=== PATIENT | female | born 1950 | race Two or more races ===

== ENCOUNTER 2017-09-21 12:50 | Inpatient (IN) | payer OTHER ==
[2017-09-21] VITALS (11 sets, daily range): BP systolic 71–181; BP diastolic 42–147
[~2017-09-21] VITALS: Ht 152.4 cm; Wt 88.6 kg
[2017-09-21] MEDS ORDERED: SODIUM CHLORIDE 0.9% 1,000 ML IVB ONE (13:02)
[2017-09-21] MEDS ORDERED: SODIUM CHLORIDE 0.9% 1,000 ML IV ONE (13:02)
[2017-09-21] MEDS ORDERED: ACETAMINOPHEN 650 MG RECT SUPP PR ONE (14:00)
[2017-09-21 14:11] LABS: Hematocrit 47.3 % (36.0-46.0); Hemoglobin 15.4 g/dL (12.2-16.2); Mean Corpuscular Hemoglobin 29.1 pg (28.0-32.0); Mean Corpuscular Hgb Conc. 32.4 g/dL (32.0-36.0); Mean Corpuscular Volume 89.6 fL (80.0-100.0); Platelet Count (auto) 212 10^3/uL (140-450); Red Cell Distribution Width 14.4 % (11.8-14.3); White Blood Cell 14.6 10^3/uL (4.4-10.8)
[2017-09-21 14:22] LABS: Base Excess -10.9 mmol/L (-2.0-2.0); Blood 02Sat 91.5 % (96-100); Blood MetHb 0.5 % (0.0-1.5); HCO3 13.6 mmol/L (22-26.0); HHb 8.5 % (0.0-5.0); MODE ROOM AIR; PCO2 27.7 mmHg (35.0-45.0); PCO2(T) 27.7 mmHg (35.0-45.0); PO2 66.8 mmHg (80.0-100.0); PO2(T) 66.8 mmHg (80.0-100.0); Sample Type Arterial
[2017-09-21 14:25] LABS: Albumin 2.6 g/dL (3.4-5.0); Alkaline Phosphatase 161 U/L (45-117); Anion Gap 17 (5-15); Aspartate Aminotransferase 88 U/L (15-37); Bilirubin, Total 0.6 mg/dL (0.2-1.0); Blood Urea Nitrogen 40 mg/dL (7-18); Calcium 7.4 mg/dL (8.5-10.1); Carbon Dioxide 14 mmol/L (21-32); Chloride 101 mmol/L (98-107); GFR African American 14 mL/min; GFR Non-African American 12 mL/min; Potassium 4.6 mmol/L (3.5-5.1); Sodium 132 mmol/L (136-145); Total Protein 7.8 g/dL (6.4-8.2)
[2017-09-21 14:27] LABS: INR 1.06 (0.9-1.15); Partial Thromboplastin Time 20.2 sec (22.64-33.71); Prothrombin Time 11.6 sec (9.37-12.3)
[2017-09-21 14:41] LABS: Lactic Acid w/Reflex 3.4 mmol/L (0.4-2.0)
[2017-09-21 14:52] LABS: Glucose 780 mg/dL (74-106)
[2017-09-21 14:54] LABS: Metamyelocytes % 0; Myelocytes % 0; Promyelocytes % 0; Reactive Lymphocytes 0
[2017-09-21 15:00] LABS: REFLEX LACTIC ACID YES OR NO YES
[2017-09-21 15:00] LABS: Urine Bilirubin Negative (Negative); Urine Blood TRACE /uL (Negative); Urine Color Colorless (Yellow); Urine Glucose 4+ mg/dL (Normal); Urine Ketone 1+ (Negative); Urine Nitrite Negative (Negative); Urine RBC <1 /hpf (0 - 4); Urine Urobilinogen Normal (Negative); Urine pH 6.5 (5.0-8.0)
[2017-09-21] MEDS: PROPOFOL 100 ML IV SCH ×2 (15:10→22:00)
[2017-09-21] MEDS ORDERED: ENALAPRILAT 1.25 MG/ML-1ML VIAL IV PRN (15:15)
[2017-09-21] MEDS ORDERED: DEXTROSE (50%) 50ML SYRG IV PRN (15:15)
[2017-09-21] MEDS ORDERED: cefTRIAXone 1GM/10ml IVPUSH 10 ML IV ONE (15:15)
[2017-09-21] MEDS ORDERED: MORPHINE SULF INJ 2 MG/ML SYRINGE 1ML IV PRN ×2 (15:15)
[2017-09-21] MEDS ORDERED: ACETAMINOPHEN 650 MG RECT SUPP PR PRN (15:15)
[2017-09-21] MEDS ORDERED: VANCOMYCIN PER PHARMACY 0 MG IV SCH (15:15)
[2017-09-21] MEDS ORDERED: ONDANSETRON HCL 4 MG/2 ML VIAL IV PRN (15:15)
[2017-09-21] MEDS ORDERED: NITROGLYCERIN 0.4 MG SL TAB SL PRN (15:15)
[2017-09-21] MEDS: SODIUM CHLORIDE 0.9% 1,000 ML IV SCH ×3 (15:20→22:14)
[2017-09-21] MEDS ORDERED: FAMOTIDINE (10MG/ML) 2ML VL IV ONE (15:30)
[2017-09-21] MEDS ORDERED: ETOMIDATE (2MG/ML) 20ML VIAL IV ONE (15:30)
[2017-09-21] MEDS ORDERED: PANTOPRAZOLE 40 MG/10 ML VIAL IV ONE (15:30)
[2017-09-21] MEDS ORDERED: SUCCINYLCHOLINE CHLORIDE 20 MG/ML 10ML VIAL IV ONE (15:30)
[2017-09-21] MEDS ORDERED: InsuLIN R (HUMAN) 100 UNITS in SODIUM CHL 0.9% 99 ML IV SCH (15:30)
[2017-09-21] MEDS ORDERED: PROPOFOL 100 ML IV ONE (15:31)
[2017-09-21 15:34] LABS: Magnesium 1.7 mg/dL (1.6-2.6); Phosphorus 3.6 mg/dL (2.5-4.90)
[2017-09-21] MEDS ORDERED: VANCOMYCIN 1GM/250ML 250 ML IV ONE (15:45)
[2017-09-21] MEDS ORDERED: SODIUM CHL 0.9% IV SCH (15:45)
[2017-09-21] MEDS ORDERED: INSULIN R IV SCH (15:45)
[2017-09-21] MEDS ORDERED: PIPERACILLIN-TAZOB 2.25GM 50 ML IV ONE (16:00)
[2017-09-21] MEDS: ENOXAPARIN SOD 30 MG/0.3 ML SYRINGE SC SCH (16:18)
[2017-09-21] MEDS ORDERED: LINEZOLID 600MG/300ML 300 ML IV SCH (16:22)
[2017-09-21] MEDS: ACCU-CHEK COMFORT CURVE STRIP VI SCH ×6 (16:30→22:34)
[2017-09-21] MEDS: MIDAZOLAM DRIP 50 mg/50mL 50 ML IV SCH ×2 (16:39→17:55)
[2017-09-21 16:49] LABS: Allen Test Modified; Base Excess -12.9 mmol/L (-2.0-2.0); Blood 02Sat 98.1 % (96-100); Blood COHb 0.3 % (0.5-1.5); Blood MetHb 0.5 % (0.0-1.5); HCO3 11.1 mmol/L (22-26.0); HHb 1.9 % (0.0-5.0); MODE VENT - A/C; O2Hb 97.3 % (94.0-97.0); PCO2 22.4 mmHg (35.0-45.0); PCO2(T) 24.1 mmHg (35.0-45.0); PO2 163.6 mmHg (80.0-100.0); PO2(T) 173.6 mmHg (80.0-100.0); Room 1014-ERT; Sample Type Arterial; pH 7.312 (7.350-7.450)
[2017-09-21 17:25] LABS: Platelet Estimate Adequate; RBC Morphology Normal
[2017-09-21] MEDS ORDERED: ENALAPRILAT 1.25 MG/ML-1ML VIAL IV ONE (18:00)
[2017-09-21] MEDS ORDERED: IBUPROFEN 100MG/5ML ORAL SUSP 100 MG/5 ML UD GT PRN (18:00)
[2017-09-21] MEDS: LINEZOLID 600MG/300ML 300 ML IV SCH (18:07)
[2017-09-21] MEDS: IPRATROPIUM BROM 0.5 MG/2.5ML INH SOL NEB SCH (18:25)
[2017-09-21] MEDS: ALBUTEROL SULF 2.5 MG/0.5ML(0.5%) NEB SOLN NEB SCH (18:25)
[2017-09-21 18:43] LABS: Lactic Acid w/Reflex 4.1 mmol/L (0.4-2.0)
[2017-09-21] MEDS ORDERED: SODIUM CHLORIDE 0.9% 1,000 ML IV SCH (19:10)
[2017-09-21 19:14] LABS: REFLEX LACTIC ACID YES OR NO YES
[2017-09-21 20:51] LABS: Allen Test Modified; Base Excess -11.4 mmol/L (-2.0-2.0); Blood COHb 0.3 % (0.5-1.5); Blood MetHb 0.4 % (0.0-1.5); HCO3 12.5 mmol/L (22-26.0); MODE VENT - A/C; O2Hb 96.3 % (94.0-97.0); PCO2 23.9 mmHg (35.0-45.0); PCO2(T) 24.5 mmHg (35.0-45.0); PO2 109.5 mmHg (80.0-100.0); PO2(T) 113.3 mmHg (80.0-100.0); Room 1014-ERT; Sample Type Arterial; pH 7.335 (7.350-7.450)
[2017-09-21 21:29] LABS: BUN/Creatinine Ratio 9.3; Calcium 6.6 mg/dL (8.5-10.1); Potassium 5.3 mmol/L (3.5-5.1)
[2017-09-21] MEDS ORDERED: CALCIUM GLUC 4.65meq/50ml D5AE 50 ML IV ONE (22:30)
[2017-09-21] MEDS ORDERED: InsuLIN REG 1unit/0.01ml Soln (100units/ml) IV ONE (22:30)
[2017-09-21] MEDS ORDERED: DEXTROSE (50%) 50ML SYRG IV ONE (22:30)
[2017-09-21] MEDS: PIPERACILLIN-TAZOB 2.25GM 50 ML IV SCH (23:51)
[2017-09-22] VITALS (106 sets, daily range): BP systolic 90–164; BP diastolic 40–113
[2017-09-22] MEDS: ACCU-CHEK COMFORT CURVE STRIP VI SCH ×10 (00:08→19:57)
[2017-09-22] MEDS: ALBUTEROL SULF 2.5 MG/0.5ML(0.5%) NEB SOLN NEB SCH ×4 (00:17→18:39)
[2017-09-22] MEDS: IPRATROPIUM BROM 0.5 MG/2.5ML INH SOL NEB SCH ×4 (00:17→18:39)
[2017-09-22] MEDS: MIDAZOLAM DRIP 50 mg/50mL 50 ML IV SCH (01:26)
[2017-09-22 03:49] LABS: Basophils # (auto) 0 uL; Basophils % (auto) 0.1 % (0.0-2.0); Eosinophils # (auto) 0 uL; Hematocrit 39.5 % (36.0-46.0); Hemoglobin 12.9 g/dL (12.2-16.2); Lymphocytes # (auto) 1.8 uL; Lymphocytes % (auto) 12.6 % (10.0-50.0); Mean Corpuscular Hemoglobin 28.7 pg (28.0-32.0); Mean Corpuscular Hgb Conc. 32.7 g/dL (32.0-36.0); Mean Corpuscular Volume 87.8 fL (80.0-100.0); Mean Platelet Volume 8.2 fL (6.9-10.8); Monocytes # (auto) 2.2 uL; Monocytes % (auto) 14.9 % (0.0-12.0); Neutrophils # (auto) 10.6 uL; Neutrophils % (auto) 72.4 % (37.0-80.0); Nucleated Red Blood Cells % 0.1 %; Platelet Count (auto) 270 10^3/uL (140-450); Red Cell Distribution Width 14.2 % (11.8-14.3); White Blood Cell 14.6 10^3/uL (4.4-10.8)
[2017-09-22] MEDS: SODIUM CHLORIDE 0.9% 1,000 ML IV SCH (03:56)
[2017-09-22] MEDS: PROPOFOL 100 ML IV SCH ×2 (04:11→20:48)
[2017-09-22 04:12] LABS: Albumin 1.9 g/dL (3.4-5.0); Calcium 7.1 mg/dL (8.5-10.1); Potassium 3.6 mmol/L (3.5-5.1)
[2017-09-22 04:13] LABS: BUN/Creatinine Ratio 9.5
[2017-09-22 04:16] LABS: Bilirubin, Total 0.3 mg/dL (0.2-1.0); Total Protein 6.2 g/dL (6.4-8.2)
[2017-09-22] MEDS: LINEZOLID 600MG/300ML 300 ML IV SCH ×2 (05:58→17:32)
[2017-09-22] MEDS ORDERED: cefTRIAXone 1GM/10ml IVPUSH 10 ML IV SCH (09:00)
[2017-09-22] MEDS: PIPERACILLIN-TAZOB 2.25GM 50 ML IV SCH ×3 (09:00→22:07)
[2017-09-22 09:29] LABS: Allen Test Yes; Base Excess -8.9 mmol/L (-2.0-2.0); Blood 02Sat 97.3 % (96-100); Blood COHb 0.3 % (0.5-1.5); Blood MetHb 0.2 % (0.0-1.5); HCO3 15.7 mmol/L (22-26.0); HHb 2.7 % (0.0-5.0); MODE VENT - A/C; O2Hb 96.8 % (94.0-97.0); PCO2 30.1 mmHg (35.0-45.0); PCO2(T) 30.1 mmHg (35.0-45.0); PO2 111.4 mmHg (80.0-100.0); PO2(T) 111.4 mmHg (80.0-100.0); Sample Type Arterial; pH 7.335 (7.350-7.450)
[2017-09-22] MEDS: PANTOPRAZOLE 40 MG/10 ML VIAL IV SCH (09:45)
[2017-09-22] MEDS: ENOXAPARIN SOD 30 MG/0.3 ML SYRINGE SC SCH (09:46)
[2017-09-22] MEDS ORDERED: ENOXAPARIN SOD 40 MG/0.4 ML SYRINGE SC SCH (10:00)
[2017-09-22] MEDS ORDERED: FAMOTIDINE (10MG/ML) 2ML VL IV SCH (10:00)
[2017-09-22 11:36] LABS: BUN/Creatinine Ratio 9.3; Potassium 3.9 mmol/L (3.5-5.1)
[2017-09-22] MEDS ORDERED: CLOT1CRE13 TOP (12:31)
[2017-09-22] MEDS ORDERED: NYST1POW12 XX (12:31)
[2017-09-22] MEDS ORDERED: SERT-274 PO (12:31)
[2017-09-22] MEDS ORDERED: LEVO0.5S24 OP (12:31)
[2017-09-22] MEDS ORDERED: ASPI300S4 PO (12:31)
[2017-09-22] MEDS ORDERED: NIFE60TA59 PO (12:31)
[2017-09-22] MEDS ORDERED: BRIM0.2S17 EACHEYE (12:31)
[2017-09-22] MEDS ORDERED: BECL80AE9 IN (12:31)
[2017-09-22] MEDS ORDERED: LEVO200I5 PO (12:31)
[2017-09-22] MEDS ORDERED: LATA0.0015 EACHEYE (12:31)
[2017-09-22] MEDS ORDERED: HYDR50TA15 PO (12:31)
[2017-09-22] MEDS ORDERED: LEVO25TA6 PO (12:31)
[2017-09-22] MEDS ORDERED: ATEN50TA PO (12:31)
[2017-09-22] MEDS ORDERED: ATOR40TA52 PO (12:31)
[2017-09-22] MEDS ORDERED: INSU1INJ3 SC (12:31)
[2017-09-22] MEDS ORDERED: ACET-1304 PO (12:31)
[2017-09-22] MEDS ORDERED: [UNRECOGNIZED DRUG - CODE] PO (12:31)
[2017-09-22] MEDS ORDERED: DOXY100C2 PO ×2 (12:31)
[2017-09-22] MEDS ORDERED: ALBU1AER4 IN (12:31)
[2017-09-22] MEDS ORDERED: DEXTROSE (50%) 50ML SYRG IV PRN (13:00)
[2017-09-22] MEDS ORDERED: INSULIN DETEMIR(LEVEMIR) 1unit/0.01ml Soln (100units/ml) SC ONE (14:00)
[2017-09-22] MEDS: SOD CHL 0.45% 1,000 ML IV SCH (14:06)
[2017-09-22] MEDS: InsuLIN REG 1unit/0.01ml Soln (100units/ml) SC SCH ×2 (16:21→19:57)
[2017-09-22] MEDS ORDERED: NovoloG Insulin 1unit/0.01ml Soln (100units/ml) SC SCH (17:00)
[2017-09-22 17:22] LABS: Urine Bilirubin Negative (Negative); Urine Blood 2+ /uL (Negative); Urine Color Yellow (Yellow); Urine Glucose 2+ mg/dL (Normal); Urine Ketone Negative (Negative); Urine Nitrite Negative (Negative); Urine RBC 109 /hpf (0 - 4); Urine Squamous Epithelial Cell FEW /hpf (<5); Urine Urobilinogen Normal (Negative)
[2017-09-22 18:25] LABS: Basophils # (auto) 0 uL; Basophils % (auto) 0.4 % (0.0-2.0); Eosinophils # (auto) 0 uL; Eosinophils % (auto) 0.1 % (0.0-7.0); Hematocrit 33.8 % (36.0-46.0); Hemoglobin 11.4 g/dL (12.2-16.2); Lymphocytes # (auto) 1.8 uL; Lymphocytes % (auto) 14.3 % (10.0-50.0); Mean Corpuscular Hgb Conc. 33.8 g/dL (32.0-36.0); Mean Corpuscular Volume 88.9 fL (80.0-100.0); Mean Platelet Volume 8.7 fL (6.9-10.8); Monocytes % (auto) 7.9 % (0.0-12.0); Neutrophils # (auto) 9.7 uL; Neutrophils % (auto) 77.3 % (37.0-80.0); Nucleated Red Blood Cells % 0.1 %; Platelet Count (auto) 230 10^3/uL (140-450); Red Cell Distribution Width 14.6 % (11.8-14.3); White Blood Cell 12.5 10^3/uL (4.4-10.8)
[2017-09-22 18:38] LABS: Albumin 1.7 g/dL (3.4-5.0); Alkaline Phosphatase 79 U/L (45-117); Anion Gap 14 (5-15); Aspartate Aminotransferase 31 U/L (15-37); BUN/Creatinine Ratio 9.2; Bilirubin, Direct < 0.1 mg/dL (0-0.2); Bilirubin, Total 0.4 mg/dL (0.2-1.0); Blood Urea Nitrogen 39 mg/dL (7-18); Calcium 6.4 mg/dL (8.5-10.1); Carbon Dioxide 15 mmol/L (21-32); Chloride 108 mmol/L (98-107); GFR African American 13 mL/min; GFR Non-African American 11 mL/min; Glucose 241 mg/dL (74-106); Magnesium 1.4 mg/dL (1.6-2.6); Potassium 3.5 mmol/L (3.5-5.1); Sodium 137 mmol/L (136-145); Total Protein 5.7 g/dL (6.4-8.2)
[2017-09-22 18:46] LABS: INR 1.02 (0.9-1.15); Partial Thromboplastin Time 26.8 sec (22.64-33.71); Prothrombin Time 11.1 sec (9.37-12.3)
[2017-09-23] VITALS (96 sets, daily range): BP systolic 93–150; BP diastolic 29–79
[2017-09-23] MEDS: SOD CHL 0.45% 1,000 ML IV SCH ×2 (00:05→14:23)
[2017-09-23] MEDS: ALBUTEROL SULF 2.5 MG/0.5ML(0.5%) NEB SOLN NEB SCH ×4 (00:07→18:38)
[2017-09-23] MEDS: ACCU-CHEK COMFORT CURVE STRIP VI SCH ×7 (00:07→23:55)
[2017-09-23] MEDS: IPRATROPIUM BROM 0.5 MG/2.5ML INH SOL NEB SCH ×4 (00:07→18:38)
[2017-09-23] MEDS: InsuLIN REG 1unit/0.01ml Soln (100units/ml) SC SCH ×7 (00:11→23:55)
[2017-09-23 04:06] LABS: Basophils # (auto) 0 uL; Basophils % (auto) 0.4 % (0.0-2.0); Eosinophils # (auto) 0 uL; Eosinophils % (auto) 0.5 % (0.0-7.0); Hematocrit 32.1 % (36.0-46.0); Hemoglobin 10.9 g/dL (12.2-16.2); Lymphocytes # (auto) 2.4 uL; Lymphocytes % (auto) 23.1 % (10.0-50.0); Mean Corpuscular Hemoglobin 29.1 pg (28.0-32.0); Mean Corpuscular Hgb Conc. 33.8 g/dL (32.0-36.0); Mean Platelet Volume 8.4 fL (6.9-10.8); Monocytes # (auto) 0.8 uL; Monocytes % (auto) 7.4 % (0.0-12.0); Neutrophils # (auto) 7.2 uL; Neutrophils % (auto) 68.6 % (37.0-80.0); Nucleated Red Blood Cells % 0.1 %; Platelet Count (auto) 218 10^3/uL (140-450); Red Cell Distribution Width 14.6 % (11.8-14.3); White Blood Cell 10.5 10^3/uL (4.4-10.8)
[2017-09-23 04:21] LABS: INR 0.97 (0.9-1.15); Partial Thromboplastin Time 30.5 sec (22.64-33.71); Prothrombin Time 10.6 sec (9.37-12.3)
[2017-09-23 04:43] LABS: Albumin 1.6 g/dL (3.4-5.0); Bilirubin, Direct 0.1 mg/dL (0-0.2); Bilirubin, Total 0.4 mg/dL (0.2-1.0); Calcium 6.5 mg/dL (8.5-10.1); Magnesium 1.4 mg/dL (1.6-2.6); Phosphorus 3.2 mg/dL (2.5-4.90); Total Protein 5.4 g/dL (6.4-8.2)
[2017-09-23 04:46] LABS: Potassium 2.9 mmol/L (3.5-5.1)
[2017-09-23] MEDS: PROPOFOL 100 ML IV SCH (05:14)
[2017-09-23] MEDS: PIPERACILLIN-TAZOB 2.25GM 50 ML IV SCH ×3 (05:15→22:05)
[2017-09-23] MEDS: LINEZOLID 600MG/300ML 300 ML IV SCH (06:25)
[2017-09-23 08:49] LABS: Allen Test Modified; Base Excess -8.2 mmol/L (-2.0-2.0); Blood 02Sat 97.2 % (96-100); Blood COHb 0.1 % (0.5-1.5); Blood MetHb 0.3 % (0.0-1.5); HCO3 15.7 mmol/L (22-26.0); HHb 2.8 % (0.0-5.0); MODE VENT - A/C; O2Hb 96.8 % (94.0-97.0); PCO2 27.2 mmHg (35.0-45.0); PCO2(T) 27.2 mmHg (35.0-45.0); PO2 108.9 mmHg (80.0-100.0); PO2(T) 108.9 mmHg (80.0-100.0); Sample Type Arterial; pH 7.378 (7.350-7.450)
[2017-09-23] MEDS: PANTOPRAZOLE 40 MG/10 ML VIAL IV SCH (09:12)
[2017-09-23] MEDS: POTASSIUM CHL 20MEQ/50ML 50 ML IV SCH ×4 (09:12→16:04)
[2017-09-23] MEDS: MAGNESIUM SULFATE 1GM/100ML 100 ML IV SCH ×2 (09:12→10:28)
[2017-09-23] MEDS: ENOXAPARIN SOD 30 MG/0.3 ML SYRINGE SC SCH (09:12)
[2017-09-23] MEDS: INSULIN DETEMIR(LEVEMIR) 1unit/0.01ml Soln (100units/ml) SC SCH (10:38)
[2017-09-23 11:17] LABS: Urine Bilirubin Negative (Negative); Urine Blood 2+ /uL (Negative); Urine Color Yellow (Yellow); Urine Glucose 1+ mg/dL (Normal); Urine Ketone Negative (Negative); Urine Mucus FEW (None Seen); Urine Nitrite Negative (Negative); Urine RBC 12 /hpf (0 - 4); Urine Squamous Epithelial Cell FEW /hpf (<5); Urine Urobilinogen Normal (Negative); Urine pH 5.5 (5.0-8.0)
[2017-09-23] MEDS ORDERED: LEVOTHYROXINE SODIUM 100 MCG TAB PO ONE (12:10)
[2017-09-23] MEDS: MIDAZOLAM DRIP 50 mg/50mL 50 ML IV SCH (15:50)
[2017-09-23 19:07] LABS: BUN/Creatinine Ratio 8.1; Calcium 6.6 mg/dL (8.5-10.1); Potassium 3.9 mmol/L (3.5-5.1)
[2017-09-24] VITALS (94 sets, daily range): BP systolic 111–199; BP diastolic 46–111
[2017-09-24] MEDS: SOD CHL 0.45% 1,000 ML IV SCH ×4 (02:45→23:45)
[2017-09-24 03:47] LABS: Basophils # (auto) 0 uL; Basophils % (auto) 0.3 % (0.0-2.0); Eosinophils # (auto) 0.1 uL; Eosinophils % (auto) 1.3 % (0.0-7.0); Hematocrit 33.7 % (36.0-46.0); Lymphocytes # (auto) 1.6 uL; Mean Corpuscular Hemoglobin 28.8 pg (28.0-32.0); Mean Corpuscular Hgb Conc. 32.8 g/dL (32.0-36.0); Mean Corpuscular Volume 87.9 fL (80.0-100.0); Mean Platelet Volume 8.5 fL (6.9-10.8); Monocytes # (auto) 0.6 uL; Monocytes % (auto) 7.8 % (0.0-12.0); Neutrophils # (auto) 5.2 uL; Neutrophils % (auto) 69.6 % (37.0-80.0); Nucleated Red Blood Cells % 0.1 %; Platelet Count (auto) 220 10^3/uL (140-450); Red Cell Distribution Width 14.9 % (11.8-14.3); White Blood Cell 7.5 10^3/uL (4.4-10.8)
[2017-09-24 04:00] LABS: INR 0.9 (0.9-1.15); Prothrombin Time 9.8 sec (9.37-12.3)
[2017-09-24 04:08] LABS: Albumin 1.7 g/dL (3.4-5.0); BUN/Creatinine Ratio 7.9; Bilirubin, Direct 0.1 mg/dL (0-0.2); Bilirubin, Total 0.5 mg/dL (0.2-1.0); Calcium 6.6 mg/dL (8.5-10.1); Potassium 3.9 mmol/L (3.5-5.1); Total Protein 5.8 g/dL (6.4-8.2)
[2017-09-24] MEDS: InsuLIN REG 1unit/0.01ml Soln (100units/ml) SC SCH ×5 (04:30→20:00)
[2017-09-24] MEDS: ACCU-CHEK COMFORT CURVE STRIP VI SCH ×5 (04:30→20:03)
[2017-09-24] MEDS: PIPERACILLIN-TAZOB 2.25GM 50 ML IV SCH ×3 (05:47→21:54)
[2017-09-24] MEDS: ALBUTEROL SULF 2.5 MG/0.5ML(0.5%) NEB SOLN NEB SCH ×3 (06:11→19:06)
[2017-09-24] MEDS: IPRATROPIUM BROM 0.5 MG/2.5ML INH SOL NEB SCH ×3 (06:11→19:06)
[2017-09-24] MEDS: LEVOTHYROXINE SODIUM 100 MCG TAB PO SCH (06:46)
[2017-09-24 07:40] LABS: Base Excess -11.2 mmol/L (-2.0-2.0); Blood 02Sat 97.8 % (96-100); Blood COHb 0.3 % (0.5-1.5); Blood MetHb 0.2 % (0.0-1.5); HCO3 12.9 mmol/L (22-26.0); HHb 2.2 % (0.0-5.0); MODE VENT - A/C; O2Hb 97.3 % (94.0-97.0); PO2 131.1 mmHg (80.0-100.0); PO2(T) 131.1 mmHg (80.0-100.0); Sample Type Arterial; pH 7.332 (7.350-7.450)
[2017-09-24] MEDS: PANTOPRAZOLE 40 MG/10 ML VIAL IV SCH (09:16)
[2017-09-24] MEDS: INSULIN DETEMIR(LEVEMIR) 1unit/0.01ml Soln (100units/ml) SC SCH (09:16)
[2017-09-24] MEDS: ENOXAPARIN SOD 30 MG/0.3 ML SYRINGE SC SCH (09:17)
[2017-09-24] MEDS: PROPOFOL 100 ML IV SCH (14:50)
[2017-09-24] MEDS: MIDAZOLAM DRIP 50 mg/50mL 50 ML IV SCH (14:51)
[2017-09-24] MEDS: FLUCONAZOLE 200MG/100ML 100 ML IV SCH (15:15)
[2017-09-24 16:04] LABS: Base Excess -11.3 mmol/L (-2.0-2.0); Blood 02Sat 96.7 % (96-100); Blood COHb 0.1 % (0.5-1.5); Blood MetHb 0.3 % (0.0-1.5); HCO3 14.6 mmol/L (22-26.0); HHb 3.3 % (0.0-5.0); MODE VENT - CPAP; O2Hb 96.3 % (94.0-97.0); PCO2 32.6 mmHg (35.0-45.0); PCO2(T) 32.6 mmHg (35.0-45.0); PO2 100.7 mmHg (80.0-100.0); PO2(T) 100.7 mmHg (80.0-100.0); Pressure Support 8; Sample Type Arterial; Spont Vt 422; pH 7.268 (7.350-7.450)
[2017-09-24] MEDS: hydrALAZINE HCL 20 MG/ML VL IV PRN (20:36)
[2017-09-24] MEDS: MORPHINE SULFATE 4 MG/ML SYRG IV PRN (23:54)
[2017-09-25] VITALS (87 sets, daily range): BP systolic 109–214; BP diastolic 49–86
[2017-09-25] MEDS: InsuLIN REG 1unit/0.01ml Soln (100units/ml) SC SCH ×5 (00:04→17:53)
[2017-09-25] MEDS: IPRATROPIUM BROM 0.5 MG/2.5ML INH SOL NEB SCH ×4 (00:22→18:35)
[2017-09-25] MEDS: ALBUTEROL SULF 2.5 MG/0.5ML(0.5%) NEB SOLN NEB SCH ×4 (00:22→18:35)
[2017-09-25] MEDS: ACCU-CHEK COMFORT CURVE STRIP VI SCH ×5 (04:13→17:49)
[2017-09-25 05:24] LABS: Basophils # (auto) 0 uL; Basophils % (auto) 0.5 % (0.0-2.0); Eosinophils # (auto) 0.1 uL; Eosinophils % (auto) 1.5 % (0.0-7.0); Hematocrit 33.1 % (36.0-46.0); Lymphocytes # (auto) 1.3 uL; Lymphocytes % (auto) 17.1 % (10.0-50.0); Mean Corpuscular Hemoglobin 29.3 pg (28.0-32.0); Mean Corpuscular Volume 88.6 fL (80.0-100.0); Mean Platelet Volume 8.5 fL (6.9-10.8); Monocytes # (auto) 0.6 uL; Monocytes % (auto) 7.4 % (0.0-12.0); Neutrophils # (auto) 5.5 uL; Neutrophils % (auto) 73.5 % (37.0-80.0); Platelet Count (auto) 219 10^3/uL (140-450); Red Cell Distribution Width 15.3 % (11.8-14.3); White Blood Cell 7.5 10^3/uL (4.4-10.8)
[2017-09-25] MEDS: SOD CHL 0.45% 1,000 ML IV SCH (05:28)
[2017-09-25] MEDS: PIPERACILLIN-TAZOB 2.25GM 50 ML IV SCH ×3 (05:29→21:58)
[2017-09-25 05:48] LABS: BUN/Creatinine Ratio 7.5; Calcium 6.9 mg/dL (8.5-10.1); Magnesium 2.1 mg/dL (1.6-2.6); Phosphorus 4.3 mg/dL (2.5-4.90); Potassium 3.9 mmol/L (3.5-5.1)
[2017-09-25] MEDS: LEVOTHYROXINE SODIUM 100 MCG TAB PO SCH (07:27)
[2017-09-25] MEDS: FLUCONAZOLE 200MG/100ML 100 ML IV SCH (09:26)
[2017-09-25] MEDS: INSULIN DETEMIR(LEVEMIR) 1unit/0.01ml Soln (100units/ml) SC SCH (09:27)
[2017-09-25] MEDS: PANTOPRAZOLE 40 MG/10 ML VIAL IV SCH (09:27)
[2017-09-25] MEDS: ENOXAPARIN SOD 30 MG/0.3 ML SYRINGE SC SCH (09:27)
[2017-09-25] MEDS: FUROSEMIDE 100 MG/10ML VIAL IV SCH (10:17)
[2017-09-25] MEDS: POTASSIUM CHL 20MEQ/50ML 50 ML IV SCH ×2 (10:25→14:21)
[2017-09-25] MEDS: ALBUMIN 25% 100 ML IV SCH ×3 (10:34→22:04)
[2017-09-25] MEDS: SODIUM BICARBONATE 50ML VIAL 50 ML in D5W/SOD CHL 0.45% 1,000 ML IV SCH ×2 (10:34→20:00)
[2017-09-25] MEDS: MIDAZOLAM HCL 1MG/1ML-2 ML VIAL IV PRN ×3 (13:09→22:36)
[2017-09-25 13:24] LABS: Allen Test Yes; Base Excess -9.9 mmol/L (-2.0-2.0); Blood 02Sat 97.2 % (96-100); Blood COHb 0.3 % (0.5-1.5); Blood MetHb 0.2 % (0.0-1.5); HCO3 15.5 mmol/L (22-26.0); HHb 2.8 % (0.0-5.0); MODE VENT - CPAP; O2Hb 96.7 % (94.0-97.0); PCO2 32.4 mmHg (35.0-45.0); PCO2(T) 32.4 mmHg (35.0-45.0); PO2 110.8 mmHg (80.0-100.0); PO2(T) 110.8 mmHg (80.0-100.0); Pressure Support 8; Sample Type Arterial; pH 7.298 (7.350-7.450)
[2017-09-25] MEDS ORDERED: DEXTROSE (50%) 50ML SYRG IV PRN (14:30)
[2017-09-25] MEDS: hydrALAZINE HCL 20 MG/ML VL IV PRN ×2 (15:04→21:59)
[2017-09-25] MEDS: PROPOFOL 100 ML IV SCH (15:50)
[2017-09-25] MEDS: MIDAZOLAM DRIP 50 mg/50mL 50 ML IV SCH (15:50)
[2017-09-25] MEDS: MORPHINE SULFATE 4 MG/ML SYRG IV PRN ×2 (16:54→22:03)
[2017-09-26] VITALS (54 sets, daily range): BP systolic 111–193; BP diastolic 53–102
[2017-09-26] MEDS: InsuLIN REG 1unit/0.01ml Soln (100units/ml) SC SCH ×4 (00:05→17:41)
[2017-09-26] MEDS: ACCU-CHEK COMFORT CURVE STRIP VI SCH ×4 (00:05→17:41)
[2017-09-26] MEDS: IPRATROPIUM BROM 0.5 MG/2.5ML INH SOL NEB SCH ×4 (00:23→19:15)
[2017-09-26] MEDS: ALBUTEROL SULF 2.5 MG/0.5ML(0.5%) NEB SOLN NEB SCH ×4 (00:23→19:15)
[2017-09-26] MEDS: hydrALAZINE HCL 20 MG/ML VL IV PRN ×3 (02:48→18:52)
[2017-09-26] MEDS: MIDAZOLAM HCL 1MG/1ML-2 ML VIAL IV PRN (02:49)
[2017-09-26 04:38] LABS: Basophils # (auto) 0 uL; Basophils % (auto) 0.4 % (0.0-2.0); Eosinophils # (auto) 0.1 uL; Eosinophils % (auto) 1.7 % (0.0-7.0); Hematocrit 28.3 % (36.0-46.0); Hemoglobin 9.4 g/dL (12.2-16.2); Lymphocytes # (auto) 1.2 uL; Mean Corpuscular Hemoglobin 29.1 pg (28.0-32.0); Mean Corpuscular Hgb Conc. 33.3 g/dL (32.0-36.0); Mean Corpuscular Volume 87.4 fL (80.0-100.0); Mean Platelet Volume 8.4 fL (6.9-10.8); Monocytes # (auto) 0.5 uL; Monocytes % (auto) 9.6 % (0.0-12.0); Neutrophils # (auto) 3.6 uL; Neutrophils % (auto) 66.3 % (37.0-80.0); Platelet Count (auto) 197 10^3/uL (140-450); Red Cell Distribution Width 15.2 % (11.8-14.3); White Blood Cell 5.4 10^3/uL (4.4-10.8)
[2017-09-26 04:53] LABS: Calcium 7.4 mg/dL (8.5-10.1); Potassium 3.2 mmol/L (3.5-5.1)
[2017-09-26] MEDS: ALBUMIN 25% 100 ML IV SCH ×2 (05:57→13:36)
[2017-09-26] MEDS: PIPERACILLIN-TAZOB 2.25GM 50 ML IV SCH ×2 (05:57→13:41)
[2017-09-26] MEDS: LEVOTHYROXINE SODIUM 100 MCG TAB PO SCH (05:58)
[2017-09-26] MEDS: ENOXAPARIN SOD 30 MG/0.3 ML SYRINGE SC SCH (09:10)
[2017-09-26] MEDS: FLUCONAZOLE 200MG/100ML 100 ML IV SCH (09:10)
[2017-09-26] MEDS: FUROSEMIDE 100 MG/10ML VIAL IV SCH (09:10)
[2017-09-26] MEDS: PANTOPRAZOLE 40 MG/10 ML VIAL IV SCH (09:10)
[2017-09-26] MEDS: SODIUM BICARBONATE 50ML VIAL 50 ML in D5W/SOD CHL 0.45% 1,000 ML IV SCH ×2 (09:11→17:12)
[2017-09-26] MEDS: INSULIN DETEMIR(LEVEMIR) 1unit/0.01ml Soln (100units/ml) SC SCH (09:29)
[2017-09-26 10:22] LABS: Allen Test Yes; Base Excess -6.9 mmol/L (-2.0-2.0); Blood 02Sat 96.6 % (96-100); Blood COHb 0.3 % (0.5-1.5); Blood MetHb 0.3 % (0.0-1.5); HCO3 18.2 mmol/L (22-26.0); HHb 3.4 % (0.0-5.0); MODE VENT - CPAP; PCO2 35.3 mmHg (35.0-45.0); PCO2(T) 35.3 mmHg (35.0-45.0); PO2 104.4 mmHg (80.0-100.0); PO2(T) 104.4 mmHg (80.0-100.0); Pressure Support 8; Sample Type Arterial; Spont Vt 379; pH 7.331 (7.350-7.450)
[2017-09-26] MEDS: POTASSIUM CHL 20MEQ/50ML 50 ML IV SCH ×3 (11:31→16:00)
[2017-09-26] MEDS ORDERED: METOPROLOL TARTRATE 1MG/1ML-5ML VIAL IV PRN (14:00)
[2017-09-26] MEDS: MIDAZOLAM DRIP 50 mg/50mL 50 ML IV SCH (15:50)
[2017-09-26] MEDS: PROPOFOL 100 ML IV SCH (15:50)
[2017-09-26] MEDS: ATORVASTATIN 20 MG TAB PO SCH (22:00)
[2017-09-26] MEDS: NIFEdipine ER 30 MG TAB PO SCH (22:00)
[2017-09-26] MEDS ORDERED: hydrALAZINE HCL 25 MG TAB PO ONE (22:00)
[2017-09-26] MEDS: METOPROLOL TARTRATE 25 MG TAB PO SCH (22:00)
[2017-09-27] VITALS (43 sets, daily range): BP systolic 110–173; BP diastolic 51–110
[2017-09-27] MEDS: ACCU-CHEK COMFORT CURVE STRIP VI SCH ×4 (00:30→18:13)
[2017-09-27] MEDS: InsuLIN REG 1unit/0.01ml Soln (100units/ml) SC SCH ×4 (00:30→18:13)
[2017-09-27 05:41] LABS: Albumin 3.2 g/dL (3.4-5.0); BUN/Creatinine Ratio 5.6; Bilirubin, Total 0.7 mg/dL (0.2-1.0); Calcium 7.6 mg/dL (8.5-10.1); Potassium 3.4 mmol/L (3.5-5.1); Total Protein 7.2 g/dL (6.4-8.2)
[2017-09-27] MEDS: ALBUTEROL SULF 2.5 MG/0.5ML(0.5%) NEB SOLN NEB SCH ×4 (06:16→18:30)
[2017-09-27] MEDS: IPRATROPIUM BROM 0.5 MG/2.5ML INH SOL NEB SCH ×4 (06:16→18:30)
[2017-09-27] MEDS: SODIUM BICARBONATE 50ML VIAL 50 ML in D5W/SOD CHL 0.45% 1,000 ML IV SCH ×2 (06:19→13:22)
[2017-09-27] MEDS: LEVOTHYROXINE SODIUM 100 MCG TAB PO SCH (07:12)
[2017-09-27 07:58] LABS: Basophils # (auto) 0 uL; Basophils % (auto) 0.4 % (0.0-2.0); Eosinophils # (auto) 0.2 uL; Eosinophils % (auto) 3.4 % (0.0-7.0); Hemoglobin 11.4 g/dL (12.2-16.2); Lymphocytes # (auto) 1.3 uL; Lymphocytes % (auto) 18.7 % (10.0-50.0); Mean Corpuscular Hemoglobin 28.8 pg (28.0-32.0); Mean Corpuscular Hgb Conc. 32.4 g/dL (32.0-36.0); Mean Corpuscular Volume 88.7 fL (80.0-100.0); Mean Platelet Volume 8.6 fL (6.9-10.8); Monocytes # (auto) 0.8 uL; Monocytes % (auto) 12.2 % (0.0-12.0); Neutrophils # (auto) 4.4 uL; Neutrophils % (auto) 65.3 % (37.0-80.0); Platelet Count (auto) 227 10^3/uL (140-450); Red Cell Distribution Width 15.2 % (11.8-14.3); White Blood Cell 6.7 10^3/uL (4.4-10.8)
[2017-09-27] MEDS ORDERED: FLORASTOR (S. BOULARDII) 250 MG CAP PO SCH (10:00)
[2017-09-27] MEDS: FLUCONAZOLE 200MG/100ML 100 ML IV SCH (10:10)
[2017-09-27] MEDS: ASPirin 81 mg TAB PO SCH (10:11)
[2017-09-27] MEDS: FUROSEMIDE 100 MG/10ML VIAL IV SCH (10:11)
[2017-09-27] MEDS: ENOXAPARIN SOD 30 MG/0.3 ML SYRINGE SC SCH (10:11)
[2017-09-27] MEDS: PANTOPRAZOLE 40 MG/10 ML VIAL IV SCH (10:11)
[2017-09-27] MEDS: SERTRALINE HCL 50 MG TAB PO SCH (10:12)
[2017-09-27] MEDS: METOPROLOL TARTRATE 25 MG TAB PO SCH ×2 (10:12→22:03)
[2017-09-27] MEDS: INSULIN DETEMIR(LEVEMIR) 1unit/0.01ml Soln (100units/ml) SC SCH (10:22)
[2017-09-27] MEDS: ATORVASTATIN 20 MG TAB PO SCH (22:03)
[2017-09-27] MEDS: NIFEdipine ER 30 MG TAB PO SCH (22:04)
[2017-09-28] VITALS (7 sets, daily range): BP systolic 109–136; BP diastolic 50–70
[2017-09-28] MEDS: InsuLIN REG 1unit/0.01ml Soln (100units/ml) SC SCH ×4 (00:09→16:46)
[2017-09-28] MEDS: ACCU-CHEK COMFORT CURVE STRIP VI SCH ×4 (00:09→16:46)
[2017-09-28 06:05] LABS: BUN/Creatinine Ratio 5.7; Calcium 7.1 mg/dL (8.5-10.1); Potassium 3.2 mmol/L (3.5-5.1)
[2017-09-28] MEDS: LEVOTHYROXINE SODIUM 100 MCG TAB PO SCH (06:14)
[2017-09-28] MEDS: IPRATROPIUM BROM 0.5 MG/2.5ML INH SOL NEB SCH ×5 (06:19→23:56)
[2017-09-28] MEDS: ALBUTEROL SULF 2.5 MG/0.5ML(0.5%) NEB SOLN NEB SCH ×5 (06:19→23:56)
[2017-09-28] MEDS: FLUCONAZOLE 100 MG TAB PO SCH (09:40)
[2017-09-28] MEDS: SERTRALINE HCL 50 MG TAB PO SCH (09:40)
[2017-09-28] MEDS: ASPirin 81 mg TAB PO SCH (09:41)
[2017-09-28] MEDS: METOPROLOL TARTRATE 25 MG TAB PO SCH ×2 (09:41→21:17)
[2017-09-28] MEDS: INSULIN DETEMIR(LEVEMIR) 1unit/0.01ml Soln (100units/ml) SC SCH (09:45)
[2017-09-28] MEDS: ENOXAPARIN SOD 30 MG/0.3 ML SYRINGE SC SCH (09:45)
[2017-09-28] MEDS: SOD CHL 0.45% 1,000 ML IV SCH ×2 (13:27→19:45)
[2017-09-28] MEDS ORDERED: POTASSIUM CHL 10% (20 MEQ/15ML) 15ml ORAL SOLN PO ONE (14:45)
[2017-09-28] MEDS: ATORVASTATIN 20 MG TAB PO SCH (21:17)
[2017-09-28] MEDS: NIFEdipine ER 30 MG TAB PO SCH (21:17)
[2017-09-29] MEDS: ACCU-CHEK COMFORT CURVE STRIP VI SCH ×3 (00:30→12:00)
[2017-09-29] MEDS: InsuLIN REG 1unit/0.01ml Soln (100units/ml) SC SCH ×3 (00:30→12:00)
[2017-09-29] MEDS: SOD CHL 0.45% 1,000 ML IV SCH (01:38)
[2017-09-29 05:16] VITALS: BP 146/71
[2017-09-29] MEDS: LEVOTHYROXINE SODIUM 100 MCG TAB PO SCH (06:24)
[2017-09-29 06:35] LABS: BUN/Creatinine Ratio 5.9; Calcium 6.8 mg/dL (8.5-10.1); Potassium 3.2 mmol/L (3.5-5.1)
[2017-09-29] MEDS: IPRATROPIUM BROM 0.5 MG/2.5ML INH SOL NEB SCH ×2 (06:42→11:35)
[2017-09-29] MEDS: ALBUTEROL SULF 2.5 MG/0.5ML(0.5%) NEB SOLN NEB SCH ×2 (06:42→11:35)
[2017-09-29] MEDS: FLUCONAZOLE 100 MG TAB PO SCH (08:51)
[2017-09-29] MEDS: ASPirin 81 mg TAB PO SCH (08:51)
[2017-09-29] MEDS: METOPROLOL TARTRATE 25 MG TAB PO SCH (08:51)
[2017-09-29] MEDS: INSULIN DETEMIR(LEVEMIR) 1unit/0.01ml Soln (100units/ml) SC SCH (08:52)
[2017-09-29] MEDS: SERTRALINE HCL 50 MG TAB PO SCH (08:52)
[2017-09-29] MEDS: ENOXAPARIN SOD 30 MG/0.3 ML SYRINGE SC SCH (08:52)
[2017-09-29 09:00] VITALS: BP 114/62
[2017-09-29] MEDS ORDERED: LEVEMIR SC (12:06)
[2017-09-29] MEDS ORDERED: INSREGI SC (12:06)
[2017-09-29] MEDS ORDERED: LEV100T PO (12:06)
[2017-09-29] MEDS ORDERED: MET25T PO (12:06)
[2017-09-29] MEDS ORDERED: FLUC100T34 PO (12:06)
[2017-09-29 12:48] VITALS: BP 114/62
[2017-09-29 13:00] VITALS: BP 135/67
== END 2017-09-29 17:15 | disposition home health service (06) | DRG 870 ==
LOC: ER 12:50 → TELE 12:51 → ICU WEST 21:35 → TELE-CENTR 09-27 17:05
PROVIDERS: ADMIT Internal Medicine; ATTEND Internal Medicine
PROC: 5A1955Z Respiratory Ventilation, Greater than 96 Consecutive Hours (ICD-10-PCS; principal; 2017-09-21)
PROC: 0BH17EZ Insertion of Endotracheal Airway into Trachea, Via Natural or Artificial Opening (ICD-10-PCS; 2017-09-21)
DX: A41.9 Sepsis, unspecified organism (principal); J96.01 Acute respiratory failure with hypoxia; N17.0 Acute kidney failure with tubular necrosis; G92 Toxic encephalopathy; E44.0 Moderate protein-calorie malnutrition; B49 Unspecified mycosis; E11.10 Type 2 diabetes mellitus with ketoacidosis without coma; E87.1 Hypo-osmolality and hyponatremia; N18.4 Chronic kidney disease, stage 4 (severe); N39.0 Urinary tract infection, site not specified; E83.51 Hypocalcemia; D64.9 Anemia, unspecified; E03.9 Hypothyroidism, unspecified; E11.22 Type 2 diabetes mellitus with diabetic chronic kidney disease; E11.40 Type 2 diabetes mellitus with diabetic neuropathy, unspecified; E78.5 Hyperlipidemia, unspecified; E83.42 Hypomagnesemia; E87.6 Hypokalemia; E87.8 Other disorders of electrolyte and fluid balance, not elsewhere classified; F32.9 Major depressive disorder, single episode, unspecified; I13.10 Hypertensive heart and chronic kidney disease without heart failure, with stage 1 through stage 4 chronic kidney disease, or unspecified chronic kidney disease; I67.2 Cerebral atherosclerosis; J20.9 Acute bronchitis, unspecified; Z82.49 Family history of ischemic heart disease and other diseases of the circulatory system; Z83.3 Family history of diabetes mellitus; Z79.899 Other long term (current) drug therapy
CPT/HCPCS: 31500; 36415; 36600; 51702; 70450; 71010; 76775; 80048; 80053; 80076; 80307; 80320; 81001; 82010; 82570; 82607; 82746; 82805; 82962; 83605; 83735; 83930; 84100; 84156; 84300; 84439; 84443; 84480; 84484; 84550; 85007; 85025; 85027; 85048; 85610; 85730; 86592; 87040; 87045; 87070; 87081; 87086; 87205; 87400; 87493; 87899; 93005; 93306; 94002; 94003; 94640; 96361; 96365; 96367; 96368; 96375; 99291; A4565; C9113; J0610; J1450; J1815; J2250; J2543; J2704; J3490